=== PATIENT | female | born 1950 | race Caucasian/White ===

== ENCOUNTER 2025-01-14 09:06 | Outpatient (CLI) | payer MEDICARE | END 2025-01-14 09:07 | disposition home or self-care (01) | LOC: CSHMAMMO 09:06 | PROVIDERS: ATTEND Student in an Organized Health Care Education/Training Program | DX: Z78.0 Asymptomatic menopausal state (principal); M85.851 Other specified disorders of bone density and structure, right thigh; M85.852 Other specified disorders of bone density and structure, left thigh | CPT/HCPCS: 77080 ==